=== PATIENT | male | born 1995 | race Caucasian/White ===

== ENCOUNTER 2016-10-14 02:42 | Emergency (ER) | payer BC ==
--- NOTE | 2016-10-14 03:30 | ED ---
Nghia Ferraro SooYoung, scribed for Shailesh Casillas MD on 10/14/16 at 0309 . 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 Pt states he punched a tree. - History of Current Complaint Chief Complaint: EDExtremityUpper Stated Complaint: RIGHT PAIND PAIN Time Seen by Provider: 10/14/16 02:57 Hx Obtained From: Patient, Family/Cot Assembler - mother present Mechanism Of Injury: Blunt Trauma Onset/Duration: Traumatic, Still Present Timing: Constant Severity Initially: Moderate Severity Currently: Moderate Pain Location: Hand - Allergies/Home Medications Allergies/Adverse Reactions: Allergies Allergy/AdvReac Type Severity Reaction Status Date / Time No Known Allergies Allergy Verified 06/05/12 09:55 PMH/Surg Hx/FS Hx/Imm Hx Previously Healthy: Yes Sensory History: Denies: Hx Legally Blind Opthamlomology History: Denies: Hx Legally Blind Infectious Disease History: Denies: Traveled Outside the [place] in Last 30 Days - Social History Occupation: Unemployed Lives: With Family Alcohol Use: Weekly Hx Substance Use: No Substance Use Type: Reports: None Hx Tobacco Use: Yes Smoking Status (MU): Heavy Every Day Tobacco Smoker Review of Systems Negative: Cough Positive: Other - pos: R hand All Other Systems Reviewed And Are Negative: Yes Physical Exam Triage Information Reviewed: Yes Vital Signs Reviewed: Yes Appearance: Positive: Well-Appearing, Pain Distress - mild discomfort Skin: Positive: Warm Head/Face: Positive: Normal Head/Face Inspection ENT: Positive: Hearing grossly normal Respiratory/Lung Sounds: Positive: Breath Sounds Present Musculoskeletal: Positive: Other - tender swollen mid susan, pain with flexion at mcp Neurological: Positive: Alert, Oriented to Person Place, Time Psychiatric: Positive: Affect/Mood Appropriate Procedures - Splinting Hand-Made Type: orthoglass Splint: ulnar Pre-Proc Neuro Vasc Exam: normal Post-Proc Neuro Vasc Exam: normal Diagnostics - Laboratory Lab Statement: Any lab studies that have been ordered have been reviewed, and results considered in the medical decision making process. - Radiology R HAND Xray Interpretation: Positive (See Comments) - Broke 4th metacarpal Radiology Interpretation Completed By: ED Physician Course/Dx - Diagnoses Provider Diagnoses: Metacarpal bone fracture Discharge - Discharge Plan Condition: Improved Disposition: HOME Patient Education Materials: Hand Fracture (ED) Forms: *Work Release Referrals: Monie Guzmán NP [Primary Care Provider] - Patricio Nunez MD [Medical Doctor] - 1 Week (Within the next week.) Additional Instructions: Follow up with orthopedics within the week. The documentation as recorded by the Nghia momin SooYoung accurately reflects the service I personally performed and the decisions made by , Shailesh Casillas MD.
[2016-10-14 03:36] VITALS: BP 111/54
--- NOTE | 2016-10-14 08:31 | RAD ---
INDICATION: Right hand trauma with pain at the fourth metacarpal COMPARISON: None. TECHNIQUE: 4 views of the right hand were obtained. FINDINGS: There is an obliquely oriented fracture at the proximal pole of the fourth metacarpal extending from the radial cortex of the proximal metaphysis to the radial aspect articulating surface of the proximal head. The remaining visualized bones are intact and appropriately aligned. IMPRESSION: Slightly displaced fracture of the proximal right fourth metacarpal as described above.
== END 2016-10-14 03:35 | disposition home or self-care (01) ==
LOC: ED 02:42
DX: S62.394A Other fracture of fourth metacarpal bone, right hand, initial encounter for closed fracture (principal); W22.8XXA Striking against or struck by other objects, initial encounter; F17.200 Nicotine dependence, unspecified, uncomplicated; Y92.9 Unspecified place or not applicable
CPT/HCPCS: 99283

== ENCOUNTER 2017-12-05 11:40 | Emergency (ER) | payer SELFPAY ==
[2017-12-05] MEDS ORDERED: guaiFENesin/CODIEN 100MG-10MG* 5 ML UDC PO ONE (12:37)
[2017-12-05] MEDS ORDERED: Albuterol/Ipratropium NEB.SOL* Albuterol 2.5 MG/Ipratropium 0.5 MG 3 ML INH ONE (12:37)
--- NOTE | 2017-12-05 12:49 | ED ---
Respiratory - HPI Summary HPI Summary: This is Sania momin, documenting for attending Juanito Calzada MD. This patient is a 22 year old M presenting to [facility] accompanied by with a chief complaint of persistent productive coughing for the past week with vomiting and diarrhea. He states the coughing causes him to gag and then vomit. States vomiting only occurs after bouts of coughing. Reports mild wheezing, rhinorrhea , and decreased PO intake. He has taken Mucinex and nasal sprays without relief. Patient was seen a the [facility] earlier this week and was given Prednisone, which was taken this morning. Denies inhaler use. Patient is current smoker. Grandmother reports FMHx of asthma. I, Dr. Calzada personally performed the services described in this documentation as scribed in my presence and it is both accurate and complete. - History of Current Complaint Chief Complaint: EDUpperRespComplaint Stated Complaint: GENERAL ILLNESS X 1 WEEK Time Seen by Provider: 12/05/17 12:21 Hx Obtained From: Patient Onset/Duration: Lasting Weeks Timing: Constant Character: Wheezing, Cough (Productive) Sputum Amount: Moderate Aggravating Factor(s): Nothing Alleviating Factor(s): Nothing Associated Signs and Symptoms: Nasal Congestion - Allergy/Home Medications Allergies/Adverse Reactions: Allergies Allergy/AdvReac Type Severity Reaction Status Date / Time No Known Allergies Allergy Verified 12/05/17 12:08 PMH/Surg Hx/FS Hx/Imm Hx History: Denies: Hx Acute Renal Failure Sensory History: Denies: Hx Legally Blind Opthamlomology History: Denies: Hx Legally Blind Infectious Disease History: No Infectious Disease History: Denies: Traveled Outside the [place] in Last 30 Days - Family History Known Family History: Positive: Respiratory Disease - [place] - Social History Lives: With Family Alcohol Use: Weekly Hx Substance Use: No Substance Use Type: Reports: None Hx Tobacco Use: Yes Smoking Status (MU): Heavy Every Day Tobacco Smoker Review of Systems Negative: Fever, Chills Negative: Erythema Positive: Nasal Discharge. Negative: Sore Throat Negative: Chest Pain Positive: Cough, Other - wheezing. Negative: Shortness Of Breath Positive: Vomiting, Diarrhea. Negative: Abdominal Pain, Nausea Negative: dysuria, hematuria Negative: Myalgia, Edema Negative: Rash Neurological: Negative - dizziness All Other Systems Reviewed And Are Negative: Yes Physical Exam - Summary Physical Exam Summary: Constitutional: Well-developed, Well-nourished, Alert. (-) Distressed Skin: Warm, Dry HENT: Normocephalic; Atraumatic Eyes: Conjunctiva normal Neck: Musculoskeletal ROM normal neck. (-) JVD, (-) Stridor, (-) Tracheal deviation Cardio: Rhythm regular, rate normal, Heart sounds normal; Intact distal pulses; The pedal pulses are 2+ and symmetric. Radial pulses are 2+ and symmetric. (-) Murmur Pulmonary/Chest wall: Effort normal. (-) Respiratory distress, (-) Wheezes, (-) Rales, Incessant coughing Abd: Soft, (-) epigastric tenderness, (-) Distension, (-) Guarding, (-) Rebound Musculoskeletal: (-) Edema Lymph: (-) Cervical adenopathy Neuro: Alert, Oriented x3 Psych: Mood and affect Normal Triage Information Reviewed: Yes Vital Signs On Initial Exam: Initial Vitals Temp Pulse Resp BP Pulse Ox 98.2 F 104 20 138/82 96 12/05/17 12:02 12/05/17 12:02 12/05/17 12:02 12/05/17 12:02 12/05/17 12:02 Vital Signs Reviewed: Yes Diagnostics - Vital Signs Vital Signs Temp Pulse Resp BP Pulse Ox 12/05/17 12:02 98.2 F 104 20 138/82 96 - Laboratory Lab Statement: Any lab studies that have been ordered have been reviewed, and results considered in the medical decision making process. - Radiology CXR Radiology Interpretation Completed By: Radiologist - No evidence for pneumonia. Negative exam. ED Physician has reviewed this report. Disposition - Course Course Of Treatment: 22 year old M presenting to [facility] accompanied by with a chief complaint of persistent productive coughing for the past week with vomiting and diarrhea. He states the coughing causes him to gag and then vomit. States vomiting only occurs after bouts of coughing. Reports mild wheezing, rhinorrhea, and decreased PO intake. Patient is given Robitussum and Albuterol. CXR is negative. Vomitting is post-tussive in nature. Etiology of diarrhea is unknown. Patient is discharged with an Urgent Rx for Robitussum and a Albuterol Inhaler. Patient is instructed to follow up with [facility] clinic in 1-2 days. - Differential Dx - Cardiopulmonary Differential Diagnoses - Cardiopulmonary: Bronchitis, Other - asthma exacerbation - Diagnoses Provider Diagnoses: Bronchitis, Post-tussive vomiting Discharge - Sign-Out/Discharge Documenting (check all that apply): Patient Departure - Discharge Plan Condition: Stable Disposition: HOME Prescriptions: Albuterol HFA INHALER* [Ventolin HFA Inhaler*] 1 - 2 puff INH Q4H PRN #1 mdi PRN Reason: Cough guaiFENesin/CODIEN 100MG-10MG* [Robitussin AC 100Mg-10Mg*] 5 ml PO Q4H PRN #150 ml MDD 30 PRN Reason: Cough Patient Education Materials: Acute Bronchitis (ED) Forms: *Work Release Referrals: Monie Guzmán SOCIAL WORK SUPERVISOR [Primary Care Provider] - [facility] [Outside] - 2 Days Additional Instructions: RETURN TO THE EMERGENCY DEPARTMENT FOR CHANGING OR WORSENING SYMPTOMS.
--- NOTE | 2017-12-05 13:23 | RAD ---
INDICATION: Cough for one week. Now productive. Headache, vomiting, diarrhea. COMPARISON: No relevant prior exams available on the [facility] for comparison. TECHNIQUE: Dual energy PA and routine lateral views of the chest were obtained. REPORT: Clear lungs and pleural spaces. Negative for pneumothorax. The heart, pulmonary vasculature, and mediastinal contours are unremarkable. Unremarkable osseous structures and soft tissue contours. IMPRESSION: #. No evidence for pneumonia. Negative exam.
[2017-12-05] MEDS ORDERED: Albuterol HFA INHALER* 8 gm MDI INH ONE (13:42)
[2017-12-05 14:22] VITALS: BP 145/87
== END 2017-12-05 14:15 | disposition home or self-care (01) ==
LOC: ED 11:40
DX: J40 Bronchitis, not specified as acute or chronic (principal); R11.10 Vomiting, unspecified; R19.7 Diarrhea, unspecified; F17.200 Nicotine dependence, unspecified, uncomplicated
CPT/HCPCS: 71046; 99282; A9270-GY